=== PATIENT | male | born 1950 | race Caucasian/White ===

== ENCOUNTER 2019-05-13 14:58 | Emergency (ER) | payer MEDICARE, OTHER ==
[~2019-05-13] VITALS: Ht 177.8 cm; Wt 90.7 kg
[~2019-05-13 14:58] MED LIST: ASA81BEC PO; FERREX-150 PLU150 MG PO; GLUCOPHAGE XR500 MG; LORTAB 7.5/5001 TA3 PO; PERCOCET 5-3251 EACH PO; SENOKOT-S1 TA1 PO; SIMVASTATIN40 MG PO; SYNTHROID150 MCG; TOPROL XL25 MG PO; UNICOMPLEX M TA1 TA1 PO
[2019-05-13 15:08] VITALS: BP 134/71
[2019-05-13] MEDS ORDERED: AMARYL4 MG PO (15:13)
[2019-05-13] MEDS ORDERED: DOXYCYCLINE 10100 MG PO (15:20)
== END 2019-05-13 15:24 | disposition home or self-care (01) ==
LOC: M.ERS 14:58
DX: S30.862A Insect bite (nonvenomous) of penis, initial encounter (principal); E03.9 Hypothyroidism, unspecified; E78.5 Hyperlipidemia, unspecified; E11.9 Type 2 diabetes mellitus without complications; Z90.89 Acquired absence of other organs; Z95.2 Presence of prosthetic heart valve; Z88.1 Allergy status to other antibiotic agents; Z88.8 Allergy status to other drugs, medicaments and biological substances; W57.XXXA Bitten or stung by nonvenomous insect and other nonvenomous arthropods, initial encounter; Y92.89 Other specified places as the place of occurrence of the external cause; Y93.89 Activity, other specified; Y99.8 Other external cause status